=== PATIENT | female | born 2000 | race Two or more races ===

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

== ENCOUNTER 2019-01-11 18:59 | Emergency (ER) | payer OTHER, MEDICAID ==
[2019-01-11] MEDS ORDERED: ONDANSETRON 4 MG TAB.RAPDIS PO ONE (21:32)
[2019-01-11] MEDS ORDERED: ACETAMINOPHEN 325 MG TABLET PO ONE (21:32)
--- NOTE | 2019-01-11 21:34 | ER Document Report ---
ED Medical Screen (RME) - General Chief Complaint: Flu Symptoms Stated Complaint: CHEST PAIN Time Seen by Provider: 01/11/19 21:28 Primary Care Provider: DIVYA OROSCO DO [Primary Care Provider] - Follow up as needed Mode of Arrival: Ambulatory Information source: Patient Notes: Patient presents emergency department with complaints of chest pain shortness of breath headache vomiting nausea since last night. She reports it feels stabbing like someone stabbing her heart. She also reports she vomited 3 times last night and today. She reports she has a headache. Is unsure if she is but doubts it. Denies history of cardiac disease denies recent trip. Denies narcotic use. Denies cold medicine use. Reports she has a uncle on her mother side that had a heart attack at 35 years old. I have greeted and performed a rapid initial assessment of this patient. A comprehensive ED assessment and evaluation of the patient, analysis of test re sults and completion of the medical decision making process will be conducted by additional ED providers. TRAVEL OUTSIDE OF THE [place] IN LAST 30 DAYS: No - Related Data Allergies/Adverse Reactions: No Known Allergies Allergy (Verified 01/11/19 19:13) Past Medical History - Past Medical History Cardiac Medical History: Reports: Hx Hypertension - during only Neurological Medical History: Reports: Hx Seizures Renal/ Medical History: Denies: Hx Peritoneal Dialysis Past Surgical History: Reports: Hx Appendectomy - Immunizations Immunizations up to date: Yes Hx Diphtheria, Pertussis, Tetanus Vaccination: Yes History of Influenza Vaccine for 07/2017 - 12/2017 Season: No Physical Exam - Vital signs Vitals: Temp Pulse Resp BP Pulse Ox 98.9 F 98 H 14 109/79 99 01/11/19 19:27 01/11/19 19:27 01/11/19 19:27 01/11/19 19:27 01/11/19 19:27 Course - Vital Signs Vital signs: Temp Pulse Resp BP Pulse Ox 98.9 F 98 H 14 109/79 99 01/11/19 19:27 01/11/19 19:27 01/11/19 19:27 01/11/19 19:27 01/11/19 19:27 Doctor's Discharge - Discharge Referrals: DIVYA OROSCO DO [Primary Care Provider] - Follow up as needed
--- NOTE | 2019-01-11 22:36 | RADIOLOGY REPORT (SQ) ---
EXAM DESCRIPTION: XR CHEST 2 VIEWS COMPLETED DATE/TME: 01/11/2019 21:32 CLINICAL HISTORY: 18 years, Female, cp sob Findings: Heart is not enlarged. Lungs are clear. No pleural effusion. No pulmonary edema or pneumothorax. IMPRESSION: No acute disease.
[2019-01-11 23:05] LABS: ABSOLUTE LYMPHOCYTES (AUTO) 1.2 10^3/uL (0.5-4.7); ABSOLUTE MONOCYTES (AUTO) 0.8 10^3/uL (0.1-1.4); ABSOLUTE NEUT (AUTO) 4.6 10^3/uL (1.7-8.2); BASOPHILS % (AUTO) 0.2 % (0-2); EOSINOPHILS % (AUTO) 0.5 % (0-6); HEMATOCRIT 37.7 % (36.0-47.0); HEMOGLOBIN 12.8 g/dL (12.0-15.5); LYMPHOCYTES % (AUTO) 17.5 % (13-45); MEAN CORPUSCULAR HEMOGLOBIN 26.8 pg (27.0-33.4); MEAN CORPUSCULAR HGB CONC 33.9 g/dL (32.0-36.0); MEAN CORPUSCULAR VOLUME 79 fl (80-97); MONOCYTES % (AUTO) 12.5 % (3-13); PLATELET COUNT 246 10^3/uL (150-450); RED BLOOD COUNT 4.78 10^6/uL (3.72-5.28); RED CELL DISTRIBUTION WIDTH 14.8 % (11.5-14.0); SEGMENTED NEUTROPHILS % (AUTO) 69.3 % (42-78); TOTAL CELLS COUNTED % (AUTO) 100 %; WHITE BLOOD COUNT 6.7 10^3/uL (4.0-10.5)
[2019-01-11 23:19] LABS: A TYPE INFLUENZA AG NEGATIVE (NEGATIVE); B INFLUENZA AG NEGATIVE (NEGATIVE)
[2019-01-11 23:35] LABS: ALANINE AMINOTRANSFERASE 28 U/L (5-35); ALBUMIN 4.6 g/dL (3.7-5.6); ALKALINE PHOSPHATASE 81 U/L (50-135); ANION GAP 11 (5-19); ASPARTATE AMINO TRANSFERASE 20 U/L (5-30); BILIRUBIN,DIRECT 0.2 mg/dL (0.0-0.4); BILIRUBIN,TOTAL 0.6 mg/dL (0.2-1.3); BLOOD UREA NITROGEN 8 mg/dL (7-20); CALCIUM 9.2 mg/dL (8.4-10.2); CARBON DIOXIDE 25 mmol/L (22-30); CHLORIDE 102 mmol/L (98-107); GLUCOSE 86 mg/dL (75-110); POTASSIUM 3.6 mmol/L (3.6-5.0); SODIUM 137.9 mmol/L (137-145); TOTAL PROTEIN 8.1 g/dL (6.3-8.2)
[2019-01-12] MEDS ORDERED: ONDANSETRON ODT 4 MG TAB (6 TAB/ER DISP) PO PRN (02:34)
--- NOTE | 2019-01-12 02:36 | ER Document Report ---
ED General - General Chief Complaint: Flu Symptoms Stated Complaint: CHEST PAIN Time Seen by Provider: 01/11/19 21:28 Primary Care Provider: DIVYA OROSCO DO [Primary Care Provider] - Follow up as needed Mode of Arrival: Ambulatory Notes: Patient is a 18-year-old female who presents emergency department with a chief complaint of chest pain, shortness of breath, headache, vomiting, and nausea. Her symptoms started today but her nausea started last night. She has not taken any medications at home to help with her symptoms. She denies any fever. Denies any diarrhea. TRAVEL OUTSIDE OF THE [place] IN LAST 30 DAYS: No - Related Data Allergies/Adverse Reactions: No Known Allergies Allergy (Verified 01/11/19 19:13) Past Medical History - General Information source: Patient - Social History Smoking Status: Unknown if Ever Smoked Family History: Reviewed & Not Pertinent - Past Medical History Cardiac Medical History: Reports: Hx Hypertension - during only Neurological Medical History: Reports: Hx Seizures Renal/ Medical History: Denies: Hx Peritoneal Dialysis Past Surgical History: Reports: Hx Appendectomy - Immunizations Immunizations up to date: Yes Hx Diphtheria, Pertussis, Tetanus Vaccination: Yes Physical Exam - Vital signs Vitals: Temp Pulse Resp BP Pulse Ox 98.9 F 98 H 14 109/79 99 01/11/19 19:27 01/11/19 19:27 01/11/19 19:27 01/11/19 19:27 01/11/19 19:27 - Notes Notes: PHYSICAL EXAMINATION: GENERAL: Appears well, healthy, well-nourished, no acute distress. HEAD: Normocephalic, atraumatic. EYES: PERRL, conjunctiva normal, all extraocular movements intact, sclera nonicteric ENT: Moist mucous membranes. NECK: Supple, no noticeable swelling, redness, rash. Normal range of motion. LUNGS: Equal breath sounds bilaterally and clear to auscultation. No wheezes rales or rhonchi. CARDIOVASCULAR: S1-S2, regular rate, regular rhythm. Radial pulses 2+, normal. ABDOMEN: Normoactive bowel sounds. Soft, nontender, no guarding, no rebound tenderness, and no masses palpated. EXTREMITIES: Normal strength and range of motion, no pitting or edema. No cyanosis. NEUROLOGICAL: Moves all extremities upon command. Strength 5/5 in all extremities. PSYCH: Normal mood, normal affect. SKIN: Warm, dry. No rash, lesions, ulcerations noted. Normal skin turgor. Course - Re-evaluation Re-evalutation: 01/12/19 02:36 Patient's labs are unremarkable at this time. Her exam is benign. Her urinalysis is unremarkable. She states she feels better after receiving tylenol and zofran earlier. She will be sent home with a zofran dose pack and instructions on tylenol and motrin use for her pain. She is in agreement with this plan. I have discussed lab results with the patient. Return precautions were given. Verbal discharge instructions were given. They verbalized understanding. They are stable for discharge. - Vital Signs Vital signs: Temp Pulse Resp BP Pulse Ox 97.6 F 78 16 108/68 99 01/12/19 03:15 01/12/19 03:15 01/12/19 03:15 01/12/19 03:15 01/12/19 03:15 - Laboratory Result Diagrams: 01/11/19 22:42 01/11/19 22:42 Laboratory results interpreted by me: 01/11/19 22:42 MCV 79 L MCH 26.8 L RDW 14.8 H - EKG Interpretation by Me Additional EKG results interpreted by me: 01/12/19 02:46 Sinus rhythm. Rate 90. LA 172; QRS 78; QT 348; QTC 426. No ST elevations or depressions. Discharge - Discharge Clinical Impression: Chest pain Qualifiers: Chest pain type: other chest pain Qualified Code(s): R07.89 - Other chest pain Nausea and vomiting Qualifiers: Vomiting type: unspecified Vomiting Intractability: non-intractable Qualified Code(s): R11.2 - Nausea with vomiting, unspecified Condition: Stable Disposition: HOME, SELF-CARE Additional Instructions: You were seen today in the emergency department for chest pain, nausea, and vomiting. You have been given Zofran, medication for nausea. He can take 1 tablet every 4-6 hours as needed. Please take Tylenol 1000 mg every 6 hours as needed for your headache. If you develop shortness of breath, worsening symptoms, or any symptoms that are worrisome to you, please return to the emergency department. Referrals: DIVYA OROSCO, [Primary Care Provider] - Follow up as needed
[2019-01-12 03:35] VITALS: BP 108/68
--- NOTE | 2019-01-12 07:55 | EKG REPORT ---
SEVERITY:- BORDERLINE ECG - SINUS RHYTHM BORDERLINE T ABNORMALITIES, INFERIOR LEADS : Confirmed by: Joey Biggs MD 12-Jan-2019 07:53:24
== END 2019-01-12 03:35 | disposition home or self-care (01) ==
LOC: ER 18:59
DX: R07.89 Other chest pain (principal); R11.2 Nausea with vomiting, unspecified; R06.02 Shortness of breath; R51 Headache
CPT/HCPCS: 93005; 99284; 36415; 84703; 85025; 80053; 87804; 71046; 93010; S0119

== ENCOUNTER 2019-05-26 13:16 | Emergency (ER) | payer MEDICAID, OTHER ==
[2019-05-26] MEDS ORDERED: ACETAMINOPHEN 325 MG TABLET PO ONE (13:37)
--- NOTE | 2019-05-26 13:40 | ER Document Report ---
ED Medical Screen (RME) - General Chief Complaint: Vag Bleeding, +preg <12wks Stated Complaint: ABDOMINAL PAIN/VAGINAL BLEEDING Time Seen by Provider: 05/26/19 13:30 Primary Care Provider: DIVYA OROSCO DO [Primary Care Provider] - Follow up as needed Notes: Patient is a G2, P1 19-year-old female who presents to the emergency department with a chief complaint of vaginal bleeding. Her bleeding started just prior to arrival. Patient states that she has some pain in her vagina. She put a tampon in and stated that she had not filled the tampon within 5 minutes. Patient took a test about 3 weeks ago which was negative and about a week ago she took a test which was positive. Patient states that she did have some white discharge noted from her vagina about 3 days ago. Has history of seizures and is currently on Keppra. Exam: Tender mid lower abdomen. I have greeted and performed a rapid initial assessment of this patient. A comprehensive ED assessment and evaluation of the patient, analysis of test results and completion of medical decision making process will be conducted by an additional ED providers. TRAVEL OUTSIDE OF THE [place] IN LAST 30 DAYS: No - Related Data Allergies/Adverse Reactions: No Known Allergies Allergy (Verified 05/26/19 13:17) Past Medical History - Past Medical History Cardiac Medical History: Reports: Hx Hypertension - during only Neurological Medical History: Reports: Hx Seizures Renal/ Medical History: Denies: Hx Peritoneal Dialysis Past Surgical History: Reports: Hx Appendectomy - Immunizations Immunizations up to date: Yes Hx Diphtheria, Pertussis, Tetanus Vaccination: Yes History of Influenza Vaccine for 07/2017 - 12/2017 Season: No Physical Exam - Vital signs Vitals: Temp Pulse Resp BP Pulse Ox 98.3 F 79 20 124/74 97 05/26/19 13:22 05/26/19 13:22 05/26/19 13:22 05/26/19 13:22 05/26/19 13:22 Course - Vital Signs Vital signs: Temp Pulse Resp BP Pulse Ox 98.3 F 79 20 124/74 97 05/26/19 13:22 05/26/19 13:22 05/26/19 13:22 05/26/19 13:22 05/26/19 13:22 Doctor's Discharge - Discharge Referrals: DIVYA OROSCO DO [Primary Care Provider] - Follow up as needed
[2019-05-26 14:08] LABS: ABSOLUTE LYMPHOCYTES (AUTO) 1.7 10^3/uL (0.5-4.7); ABSOLUTE MONOCYTES (AUTO) 0.6 10^3/uL (0.1-1.4); ABSOLUTE NEUT (AUTO) 6.4 10^3/uL (1.7-8.2); BASOPHILS % (AUTO) 0.5 % (0-2); EOSINOPHILS % (AUTO) 0.3 % (0-6); HEMATOCRIT 38.5 % (36.0-47.0); HEMOGLOBIN 12.9 g/dL (12.0-15.5); MEAN CORPUSCULAR HEMOGLOBIN 26.7 pg (27.0-33.4); MEAN CORPUSCULAR HGB CONC 33.6 g/dL (32.0-36.0); MEAN CORPUSCULAR VOLUME 80 fl (80-97); MONOCYTES % (AUTO) 7.1 % (3-13); PLATELET COUNT 286 10^3/uL (150-450); RED BLOOD COUNT 4.83 10^6/uL (3.72-5.28); RED CELL DISTRIBUTION WIDTH 14.3 % (11.5-14.0); SEGMENTED NEUTROPHILS % (AUTO) 73.1 % (42-78); TOTAL CELLS COUNTED % (AUTO) 100 %; WHITE BLOOD COUNT 8.8 10^3/uL (4.0-10.5)
[2019-05-26 14:14] LABS: AMORPHOUS SEDIMENT,URINE TRACE /HPF; APPEARANCE,URINE TURBID; BILIRUBIN,URINE NEGATIVE (NEGATIVE); COLOR,URINE AMBER; GLUCOSE, URINE NEGATIVE (NEGATIVE); KETONES,URINE TRACE mg/dL (NEGATIVE); LEUKOCYTE ESTERASE,URINE TRACE (NEGATIVE); NITRITE,URINE NEGATIVE (NEGATIVE); PROTEIN,URINE 100 mg/dL (NEGATIVE); URINE SPECIFIC GRAVITY 1.027; UROBILINOGEN,URINE NEGATIVE mg/dL (<2.0)
[2019-05-26 14:28] LABS: ALANINE AMINOTRANSFERASE 22 U/L (9-52); ALBUMIN 4.5 g/dL (3.5-5.0); ALKALINE PHOSPHATASE 70 U/L (38-126); ANION GAP 10 (5-19); ASPARTATE AMINO TRANSFERASE 20 U/L (14-36); BILIRUBIN,DIRECT 0.2 mg/dL (0.0-0.4); BILIRUBIN,TOTAL 0.6 mg/dL (0.2-1.3); BLOOD UREA NITROGEN 8 mg/dL (7-20); CALCIUM 9.6 mg/dL (8.4-10.2); CARBON DIOXIDE 23 mmol/L (22-30); CHLORIDE 107 mmol/L (98-107); GLUCOSE 98 mg/dL (75-110); POTASSIUM 4.1 mmol/L (3.6-5.0); TOTAL PROTEIN 7.8 g/dL (6.3-8.2)
--- NOTE | 2019-05-26 15:06 | ER Document Report ---
ED General - General Chief Complaint: Vag Bleeding, +preg <12wks Stated Complaint: ABDOMINAL PAIN/VAGINAL BLEEDING Time Seen by Provider: 05/26/19 13:30 Primary Care Provider: DIVYA OROSCO DO [Primary Care Provider] - Follow up in 3-5 days Notes: Patient is a 19-year-old female, G3, P1 that presents to the emergency department for chief complaint of abdominal cramping, and vaginal bleeding. Patient states that she took a test approximately 3 weeks ago, and was positive at home, she had been having some "morning sickness", then about 1 hour prior to ED arrival today, she started having significant vaginal bleeding, like a period, and had pelvic cramping and low back pain associated with it. She was concerned she was having a miscarriage. She states that the first day of her last menstrual period was on March 02 of this year, she states that sometimes her periods can be irregular. She denies any fevers, chills, night sweats, chest pain, shortness of breath or difficulty breathing. She currently rates her pelvic pain as a 3 out of 10 describes it as cramping. She is had some whitish vaginal discharge, but denies dysuria, hematuria or urinary frequency. Past Medical History: Seizure disorder on Keppra Past Surgical History: Appendectomy Social History: Denies tobacco, alcohol or drug use. Family History: Reviewed and noncontributory for presenting illness Allergies: Reviewed, see documented allergy list. REVIEW OF SYSTEMS: Other than noted above, the 12 point review of systems was reviewed with the patient and were negative, all pertinent findings are included in the HPI. PHYSICAL EXAMINATION: Vital signs reviewed, nursing noted reviewed. GENERAL: Well-appearing, well-nourished and in no acute distress. HEAD: Atraumatic, normocephalic. EYES: Eyes appear normal, extraocular movements intact, sclera anicteric, conjunctiva are normal. ENT: nares patent, oropharynx clear without exudates. Moist mucous membranes. NECK: Normal range of motion, supple without lymphadenopathy LUNGS: Breath sounds clear to auscultation bilaterally and equal. No wheezes rales or rhonchi. HEART: Regular rate and rhythm without murmurs ABDOMEN: Soft, nontender, normoactive bowel sounds. No rebound, guarding, or rigidity. No masses appreciated. EXTREMITIES: Nontender, good range of motion, no pitting or edema. NEUROLOGICAL: No focal neurological deficits. Moves all extremities spontaneously Motor and sensory grossly intact on exam. PSYCH: Normal mood, normal affect. SKIN: Warm, Dry, normal turgor, no rashes or lesions noted on exposed skin TRAVEL OUTSIDE OF THE [place] IN LAST 30 DAYS: No - Related Data Allergies/Adverse Reactions: No Known Allergies Allergy (Verified 05/26/19 13:17) Past Medical History - General Last Menstrual Period: 03/04/19 - Social History Smoking Status: Unknown if Ever Smoked Family History: Reviewed & Not Pertinent Patient has suicidal ideation: No Patient has homicidal ideation: No - Past Medical History Cardiac Medical History: Reports: Hx Hypertension - during only Neurological Medical History: Reports: Hx Seizures Renal/ Medical History: Denies: Hx Peritoneal Dialysis Past Surgical History: Reports: Hx Appendectomy - Immunizations Immunizations up to date: Yes Hx Diphtheria, Pertussis, Tetanus Vaccination: Yes Physical Exam - Vital signs Vitals: Temp Pulse Resp BP Pulse Ox 98.3 F 79 20 124/74 97 05/26/19 13:22 05/26/19 13:22 05/26/19 13:22 05/26/19 13:22 05/26/19 13:22 Course - Re-evaluation Re-evalutation: Patient seen and examined vital signs reviewed. Laboratory data and/or imaging were ordered as appropriate for the patient's presenting symptoms and complaint, with consideration of any critical or life t hreatening conditions that may be associated with their obtained history and exam as noted above. Patient was treated with Tylenol for pain Results were reviewed when available and demonstrated negative hCG, negative ultrasound, blood work was otherwise unremarkable The patient was re-evaluated and was stable Evaluation was most consistent with vaginal bleeding, likely normal menstrual cycle. Results were discussed with the patient at this point, after careful consideration I feel that that patient can be discharged from the emergency department, the patient was educated treatments and reasons to return to the emergency department based on their presumed diagnosis as noted above, they were advised to followup with a primary care physician in 2-3 days. Patient was agreeable to plan of care. *Note is created using voice recognition software and may contain spelling, syntax or grammatical errors. Laboratory 05/26/19 05/26/19 05/26/19 13:31 13:31 13:31 WBC 8.8 RBC 4.83 Hgb 12.9 Hct 38.5 MCV 80 MCH 26.7 L MCHC 33.6 RDW 14.3 H Plt Count 286 Seg Neutrophils % 73.1 Lymphocytes % 19.0 Monocytes % 7.1 Eosinophils % 0.3 Basophils % 0.5 Absolute Neutrophils 6.4 Absolute Lymphocytes 1.7 Absolute Monocytes 0.6 Absolute Eosinophils 0.0 Absolute Basophils 0.0 Sodium 140.3 Potassium 4.1 Chloride 107 Carbon Dioxide 23 Anion Gap 10 BUN 8 Creatinine 0.62 Est GFR ( Amer) > 60 Est GFR (Non-Af Amer) > 60 Glucose 98 Calcium 9.6 Total Bilirubin 0.6 Direct Bilirubin 0.2 Neonat Total Bilirubin Not Reportable Neonat Direct Bilirubin Not Reportable Neonat Indirect Bili Not Reportable AST 20 ALT 22 Alkaline Phosphatase 70 Total Protein 7.8 Albumin 4.5 Serum HCG, Qual Beta HCG, Quant Cancelled Total Beta HCG Cancelled Urine Color DANNY Urine Appearance TURBID Urine pH 5.0 Ur Specific [place] 1.027 Urine Protein 100 H Urine Glucose (UA) NEGATIVE Urine Ketones TRACE H Urine Blood LARGE H Urine Nitrite NEGATIVE Urine Bilirubin NEGATIVE Urine Urobilinogen NEGATIVE Ur Leukocyte Esterase TRACE H Urine WBC (Auto) 6 Urine RBC (Auto) >182 Squamous Epi Cells Auto 7 Amorphous Sediment Auto TRACE Urine Mucus (Auto) MANY Urine Ascorbic Acid 40 H 05/26/19 05/26/19 13:31 13:31 WBC RBC Hgb Hct MCV MCH MCHC RDW Plt Count Seg Neutrophils % Lymphocytes % Monocytes % Eosinophils % Basophils % Absolute Neutrophils Absolute Lymphocytes Absolute Monocytes Absolute Eosinophils Absolute Basophils Sodium Potassium Chloride Carbon Dioxide Anion Gap BUN Creatinine Est GFR ( Amer) Est GFR (Non-Af Amer) Glucose Calcium Total Bilirubin Direct Bilirubin Neonat Total Bilirubin Neonat Direct Bilirubin Neonat Indirect Bili AST ALT Alkaline Phosphatase Total Protein Albumin Serum HCG, Qual NEGATIVE Beta HCG, Quant Cancelled Total Beta HCG Cancelled Urine Color Urine Appearance Urine pH Ur Specific [place] Urine Protein Urine Glucose (UA) Urine Ketones Urine Blood Urine Nitrite Urine Bilirubin Urine Urobilinogen Ur Leukocyte Esterase Urine WBC (Auto) Urine RBC (Auto) Squamous Epi Cells Auto Amorphous Sediment Auto Urine Mucus (Auto) Urine Ascorbic Acid Transvaginal US 05/26/19 13:35 IMPRESSION: NO VISUALIZED INTRA- OR EXTRAUTERINE . bHCG LEVEL NOT AVAILABLE FOR CORRELATION WITH US FINDINGS. ECTOPIC CANNOT BE EXCLUDED. FOLLOW-UP ULTRASOUND AND SERIAL BHCG LEVELS STRONGLY RECOMMENDED TO ACCURATELY ASSESS STATUS. - Vital Signs Vital signs: Temp Pulse Resp BP Pulse Ox 98.4 F 61 14 115/66 100 05/26/19 17:35 05/26/19 17:35 05/26/19 17:35 05/26/19 17:35 05/26/19 17:35 - Laboratory Result Diagrams: 05/26/19 13:31 05/26/19 13:31 Laboratory results interpreted by me: 05/26/19 05/26/19 13:31 13:31 MCH 26.7 L RDW 14.3 H Urine Protein 100 H Urine Ketones TRACE H Urine Blood LARGE H Ur Leukocyte Esterase TRACE H Urine Ascorbic Acid 40 H Discharge - Discharge Clinical Impression: Vaginal bleeding Condition: Stable Disposition: HOME, SELF-CARE Instructions: Vaginal Bleeding ([facility]) Referrals: DIVYA OROSCO DO [Primary Care Provider] - Follow up in 3-5 days
--- NOTE | 2019-05-26 16:58 | RADIOLOGY REPORT (SQ) ---
EXAM DESCRIPTION: U/S NON-OB PELVIS TV W/O DOP COMPLETED DATE/TIME: 05/26/2019 4:46 pm REASON FOR STUDY: Vaginal bleeding; positive test at home COMPARISON: None. TECHNIQUE: Transvaginal static and realtime grayscale images acquired of the pelvis. Additional danilo cted spectral and color Doppler images recorded. All images stored on PACs. CLINICAL AGE: Not known BHCG: Not available. LIMITATIONS: None. FINDINGS: UTERUS: No visualized intrauterine . RIGHT ADNEXA: Normal ovary with normal vascular flow. No adnexal free fluid. No adnexal masses. LEFT ADNEXA: Normal ovary with normal vascular flow. No adnexal free fluid. No adnexal masses. FREE FLUID: None. OTHER: No other significant finding. IMPRESSION: NO VISUALIZED INTRA- OR EXTRAUTERINE . bHCG LEVEL NOT AVAILABLE FOR CORRELATION WITH US FINDINGS. ECTOPIC CANNOT BE EXCLUDED. FOLLOW-UP ULTRASOUND AND SERIAL BHCG LEVELS STRONGLY RECOMMENDED TO ACCURATELY ASSESS STATU S. TECHNICAL DOCUMENTATION: JOB ID: [id number] [employer]- All Rights Reserved Reading location - IP/workstation name: [email or web address]
[2019-05-26 17:37] VITALS: BP 115/66
== END 2019-05-26 17:35 | disposition home or self-care (01) ==
LOC: ER 13:16
DX: N93.9 Abnormal uterine and vaginal bleeding, unspecified (principal); R10.2 Pelvic and perineal pain; M54.5 Low back pain; N89.8 Other specified noninflammatory disorders of vagina; G40.909 Epilepsy, unspecified, not intractable, without status epilepticus; Z79.899 Other long term (current) drug therapy; Z90.49 Acquired absence of other specified parts of digestive tract
CPT/HCPCS: 36415; 76830; 80053; 81001; 84703; 85025; 99284

== ENCOUNTER 2019-07-22 22:10 | Emergency (ER) | payer OTHER ==
--- NOTE | 2019-07-22 22:45 | ER Document Report ---
ED Medical Screen (RME) - General Stated Complaint: SHORTNESS OF BREATH Time Seen by Provider: 07/22/19 22:40 Primary Care Provider: DIVYA OROSCO DO [Primary Care Provider] - Follow up as needed Mode of Arrival: Ambulatory Information source: Patient Notes: 19-year-old female presents to the emergency department with complaints of right upper quad pain for the last couple weeks with really sharp pain for 1 hour ago. Reports increased pain after she eats. Denies fever vomiting reports some diarrhea today. No pain with void. Patient does smoke reports she has been coughing. I have greeted and performed a rapid initial assessment of this patient. A comprehensive ED assessment and evaluation of the patient, analysis of test results and completion of the medical decision making process will be conducted by additional ED providers. Dictation of this chart was performed using voice recognition software; therefore, there may be some unintended grammatical errors. TRAVEL OUTSIDE OF THE [place] IN LAST 30 DAYS: No - Related Data Allergies/Adverse Reactions: No Known Allergies Allergy (Verified 05/26/19 13:17) Past Medical History - Past Medical History Cardiac Medical History: Reports: Hx Hypertension - during only Neurological Medical History: Reports: Hx Seizures Renal/ Medical History: Denies: Hx Peritoneal Dialysis Past Surgical History: Reports: Hx Appendectomy - Immunizations Immunizations up to date: Yes Hx Diphtheria, Pertussis, Tetanus Vaccination: Yes History of Influenza Vaccine for 07/2017 - 12/2017 Season: No Doctor's Discharge - Discharge Referrals: DIVYA OROSCO DO [Primary Care Provider] - Follow up as needed
[2019-07-22 23:22] LABS: ABSOLUTE BASOPHILS # (AUTO) 0.1 10^3/uL (0.0-0.2); ABSOLUTE LYMPHOCYTES (AUTO) 1.4 10^3/uL (0.5-4.7); ABSOLUTE MONOCYTES (AUTO) 1.1 10^3/uL (0.1-1.4); ABSOLUTE NEUT (AUTO) 12.3 10^3/uL (1.7-8.2); BASOPHILS % (AUTO) 0.4 % (0-2); EOSINOPHILS % (AUTO) 0.3 % (0-6); HEMATOCRIT 36.9 % (36.0-47.0); HEMOGLOBIN 12.1 g/dL (12.0-15.5); LYMPHOCYTES % (AUTO) 9.1 % (13-45); MEAN CORPUSCULAR HEMOGLOBIN 26.1 pg (27.0-33.4); MEAN CORPUSCULAR HGB CONC 32.9 g/dL (32.0-36.0); MEAN CORPUSCULAR VOLUME 79 fl (80-97); MONOCYTES % (AUTO) 7.1 % (3-13); PLATELET COUNT 305 10^3/uL (150-450); RED BLOOD COUNT 4.65 10^6/uL (3.72-5.28); RED CELL DISTRIBUTION WIDTH 14.6 % (11.5-14.0); SEGMENTED NEUTROPHILS % (AUTO) 83.1 % (42-78); TOTAL CELLS COUNTED % (AUTO) 100 %; WHITE BLOOD COUNT 14.8 10^3/uL (4.0-10.5)
[2019-07-22 23:36] LABS: ALBUMIN 4.2 g/dL (3.5-5.0); ALKALINE PHOSPHATASE 83 U/L (38-126); ANION GAP 14 (5-19); ASPARTATE AMINO TRANSFERASE 21 U/L (14-36); BILIRUBIN,DIRECT 0.1 mg/dL (0.0-0.4); BILIRUBIN,TOTAL 0.3 mg/dL (0.2-1.3); BLOOD UREA NITROGEN 10 mg/dL (7-20); CALCIUM 9.6 mg/dL (8.4-10.2); CARBON DIOXIDE 22 mmol/L (22-30); CHLORIDE 103 mmol/L (98-107); GLUCOSE 112 mg/dL (75-110); POTASSIUM 4.1 mmol/L (3.6-5.0); TOTAL PROTEIN 7.8 g/dL (6.3-8.2)
[2019-07-23 00:50] LABS: APPEARANCE,URINE CLEAR; BILIRUBIN,URINE NEGATIVE (NEGATIVE); COLOR,URINE STRAW; GLUCOSE, URINE NEGATIVE (NEGATIVE); KETONES,URINE NEGATIVE (NEGATIVE); LEUKOCYTE ESTERASE,URINE NEGATIVE (NEGATIVE); NITRITE,URINE NEGATIVE (NEGATIVE); PROTEIN,URINE NEGATIVE (NEGATIVE); URINE SPECIFIC GRAVITY 1.005; UROBILINOGEN,URINE NEGATIVE mg/dL (<2.0)
--- NOTE | 2019-07-23 00:52 | RADIOLOGY REPORT (SQ) ---
EXAM DESCRIPTION: US ABDOMEN LIMITED COMPLETED DATE/TME: 07/22/2019 22:43 CLINICAL HISTORY: 19 years, Female, ruq pain COMPARISON: None. TECHNIQUE: Limited right upper quadrant ultrasound LIMITATIONS: None. FINDINGS: Echogenic appearance to the liver suggesting fatty infiltrative change. No gallstones or gallbladder wall thickening. CBD measures 2.6 mm. Visualized pancreas, abdominal aorta, right kidney unremarkable. No ascites IMPRESSION: Fatty infiltrative change to the liver. No gallstones copyright 2010 [employer]- All Rights Reserved
[2019-07-23] MEDS ORDERED: LIDOCAINE 2% VISCOUS SOLN 20 ML UDCUP PO ONE (01:22)
[2019-07-23] MEDS ORDERED: KETOROLAC TROMETHAMINE INJ/PF 30 MG/1 ML SDV IV ONE (01:22)
[2019-07-23] MEDS ORDERED: METOCLOPRAMIDE HCL ORAL SOLN 10 MG/10 ML UDCUP PO ONE (01:22)
[2019-07-23] MEDS ORDERED: MAG HYDROX/AL HYDROX/SIMETH SUSP 30 ML UDCUP PO ONE (01:22)
--- NOTE | 2019-07-23 02:36 | ER Document Report ---
ED General - General Chief Complaint: Abdominal Pain Stated Complaint: SHORTNESS OF BREATH Time Seen by Provider: 07/22/19 22:40 Primary Care Provider: DIVYA OROSCO DO [NO LOCAL MD] - Follow up as needed Mode of Arrival: Ambulatory Notes: 19-year-old female presents to the emergency department with complaints of right upper quad pain for the last couple weeks with really sharp pain for 1 hour ago. Reports increased pain after she eats. Denies fever, vomiting. does report some diarrhea today. No pain with void. No vaginal discharge. Patient does smoke reports she has been coughing. TRAVEL OUTSIDE OF THE [place] IN LAST 30 DAYS: No - Related Data Allergies/Adverse Reactions: No Known Allergies Allergy (Verified 05/26/19 13:17) Past Medical History - General Information source: Patient - Social History Smoking Status: Current Every Day Smoker Chew tobacco use (# tins/day): No Frequency of alcohol use: None Family History: Reviewed & Not Pertinent Patient has suicidal ideation: No Patient has homicidal ideation: No - Past Medical History Cardiac Medical History: Reports: Hx Hypertension - during only Neurological Medical History: Reports: Hx Seizures Renal/ Medical History: Denies: Hx Peritoneal Dialysis Past Surgical History: Reports: Hx Appendectomy - Immunizations Immunizations up to date: Yes Hx Diphtheria, Pertussis, Tetanus Vaccination: Yes Review of Systems - Review of Systems Constitutional: denies: Fever EENT: No symptoms reported Cardiovascular: No symptoms reported Respiratory: No symptoms reported Gastrointestinal: See HPI Genitourinary: No symptoms reported Female Genitourinary: No symptoms reported Musculoskeletal: No symptoms reported Skin: No symptoms reported Hematologic/Lymphatic: No symptoms reported Neurological/Psychological: No symptoms reported Physical Exam - Vital signs Vitals: Temp Pulse BP Pulse Ox 98.7 F 101 H 107/61 100 07/22/19 22:22 07/22/19 22:22 07/22/19 22:22 07/22/19 22:22 - Notes Notes: GENERAL: Alert, interacts well. No acute distress. HEAD: Normocephalic, atraumatic. EYES: Pupils equal, round, and reactive to light. Extraocular movements intact. ENT: Oral mucosa moist, tongue midline. NECK: Full range of motion. Supple. Trachea midline. LUNGS: Clear to auscultation bilaterally, no wheezes, rales, or rhonchi. No respiratory distress. HEART: Regular rate and rhythm. No murmur ABDOMEN: Soft, generalized right upper quadrant pain noted, minor epigastric pain noted. Non-distended. Bowel sounds present in all 4 quadrants. No right lower quadrant pain noted, no left lower quadrant pain noted. EXTREMITIES: Moves all 4 extremities spontaneously. No edema, normal radial and dorsalis pedis pulses bilaterally. No cyanosis. BACK: no cervical, thoracic, lumbar midline tenderness. No saddle anesthesia, normal distal neurovascular exam. No CVA tenderness noted bilaterally NEUROLOGICAL: Alert and oriented x3. Normal speech. cranial nerves II through XII grossly intact PSYCH: Normal affect, normal mood. SKIN: Warm, dry, normal turgor. No rashes or lesions noted. Course - Re-evaluation Re-evalutation: 07/23/19 02:33 Patient was treated with Toradol, GI cocktail. Upon reassessment patient is sleeping, easily arousable to verbal stimuli. States she overall feels much better. Laboratory 07/22/19 07/22/19 07/22/19 22:47 22:47 22:47 WBC 14.8 H RBC 4.65 Hgb 12.1 Hct 36.9 MCV 79 L MCH 26.1 L MCHC 32.9 RDW 14.6 H Plt Count 305 Lymph % (Auto) 9.1 L [place] % (Auto) 7.1 Eos % (Auto) 0.3 Baso % (Auto) 0.4 Absolute Neuts (auto) 12.3 H Absolute Lymphs (auto) 1.4 Absolute Monos (auto) 1.1 Absolute Eos (auto) 0.0 Absolute Basos (auto) 0.1 Seg Neutrophils % 83.1 H Sodium 139.0 Potassium 4.1 Chloride 103 Carbon Dioxide 22 Anion Gap 14 BUN 10 Creatinine 0.65 Est GFR ( Amer) > 60 Est GFR (MDRD) Non-Af > 60 Glucose 112 H Calcium 9.6 Total Bilirubin 0.3 Direct Bilirubin 0.1 Neonat Total Bilirubin Not Reportable Neonat Direct Bilirubin Not Reportable Neonat Indirect Bili Not Reportable AST 21 ALT 22 Alkaline Phosphatase 83 Total Protein 7.8 Albumin 4.2 Lipase 64.0 Serum HCG, Qual NEGATIVE Urine Color Urine Appearance Urine pH Ur Specific [place] Urine Protein Urine Glucose (UA) Urine Ketones Urine Blood Urine Nitrite Urine Bilirubin Urine Urobilinogen Ur Leukocyte Esterase Urine WBC (Auto) Urine Mucus (Auto) Urine Ascorbic Acid 07/23/19 00:22 WBC RBC Hgb Hct MCV MCH MCHC RDW Plt Count Lymph % (Auto) [place] % (Auto) Eos % (Auto) Baso % (Auto) Absolute Neuts (auto) Absolute Lymphs (auto) Absolute Monos (auto) Absolute Eos (auto) Absolute Basos (auto) Seg Neutrophils % Sodium Potassium Chloride Carbon Dioxide Anion Gap BUN Creatinine Est GFR ( Amer) Est GFR (MDRD) Non-Af Glucose Calcium Total Bilirubin Direct Bilirubin Neonat Total Bilirubin Neonat Direct Bilirubin Neonat Indirect Bili AST ALT Alkaline Phosphatase Total Protein Albumin Lipase Serum HCG, Qual Urine Color STRAW Urine Appearance CLEAR Urine pH 6.0 Ur Specific [place] 1.005 Urine Protein NEGATIVE Urine Glucose (UA) NEGATIVE Urine Ketones NEGATIVE Urine Blood NEGATIVE Urine Nitrite NEGATIVE Urine Bilirubin NEGATIVE Urine Urobilinogen NEGATIVE Ur Leukocyte Esterase NEGATIVE Urine WBC (Auto) 0 Urine Mucus (Auto) RARE Urine Ascorbic Acid NEGATIVE Abdomen Ultrasound 07/22/19 22:43 IMPRESSION: Fatty infiltrative change to the liver. No gallstones copyright 2010 [employer]- All Rights Reserved Discussed close follow-up with primary care provider and inevitably follow-up with gastroenteritis should this be gastritis related. At this time will discharge with return precautions and follow-up recommendations. Verbal discharge instructions given a the bedside and opportunity for questions given. Medication warnings reviewed. Patient is in agreement with this plan and has verbalized understanding of return precautions and the need for primary care follow-up in the next 24-72 hours. This medical record was dictated with voice recognizing software. There may be grammatical, syntax errors that are unintended. - Vital Signs Vital signs: Temp Pulse Resp BP Pulse Ox 98.7 F 68 14 123/65 99 07/22/19 22:22 07/23/19 02:49 07/23/19 02:49 07/23/19 02:49 07/23/19 02:49 - Laboratory Result Diagrams: 07/22/19 22:47 07/22/19 22:47 Laboratory results interpreted by me: 07/22/19 07/22/19 22:47 22:47 WBC 14.8 H MCV 79 L MCH 26.1 L RDW 14.6 H Lymph % (Auto) 9.1 L Absolute Neuts (auto) 12.3 H Seg Neutrophils % 83.1 H Glucose 112 H Discharge - Discharge Clinical Impression: Abdominal pain Qualifiers: Abdominal location: right upper quadrant Qualified Code(s): R10.11 - Right upper quadrant pain Gastritis Qualifiers: Gastritis type: unspecified gastritis Chronicity: acute Gastritis bleeding: without bleeding Qualified Code(s): K29.00 - Acute gastritis without bleeding Condition: Stable Disposition: HOME, SELF-CARE Instructions: Abdominal Pain ([facility]), Gastritis ([facility]), Toradol Injection ([facility]) Additional Instructions: As we discussed you have been seen and treated in the emergency department for your right upper abdominal pain and gastritis. Please make sure you are taking prescriptions as prescribed. Please also make sure he follow-up with a primary care provider and gastroenterology. Please return to the emergency room for any further concerns. Prescriptions: Famotidine [Pepcid 40 mg Tablet] 40 mg PO BID #60 tablet Forms: Return to Work Referrals: DIVYA OROSCO, [NO LOCAL MD] - Follow up as needed
[2019-07-23 02:51] VITALS: BP 123/65
== END 2019-07-23 02:52 | disposition home or self-care (01) ==
LOC: ER 22:10
DX: K29.00 Acute gastritis without bleeding (principal); R10.11 Right upper quadrant pain; R10.13 Epigastric pain; R19.7 Diarrhea, unspecified; R05 Cough; F17.200 Nicotine dependence, unspecified, uncomplicated; Z90.49 Acquired absence of other specified parts of digestive tract
CPT/HCPCS: 99284; 96374; 96375; 36415; 83690; 84703; 85025; 80053; 81001; 76705; J3490; J1885

== ENCOUNTER 2019-07-24 13:19 | Emergency (ER) | payer OTHER ==
[2019-07-24 13:36] VITALS: BP 105/70
--- NOTE | 2019-07-24 13:55 | ER Document Report ---
ED Medical Screen (RME) - General Stated Complaint: STOMACH PAIN, VOMITING Time Seen by Provider: 07/24/19 13:51 Primary Care Provider: KLADUIA HINTON PA-C [Primary Care Provider] - Follow up as needed Mode of Arrival: Ambulatory Information source: Patient Notes: 19-year-old female presents emergency department with right upper quad abdominal pain for a while reports vomiting. Reports she was evaluated recently told she had gallstones. Patient reports she is try to follow-up with the surgeon but has not gotten appointment yet. Denies fever diarrhea. Declined antinausea medicine wants something for the pain. I have greeted and performed a rapid initial assessment of this patient. A comprehensive ED assessment and evaluation of the patient, analysis of test results and completion of the medical decision making process will be conducted by additional ED providers. Dictation of this chart was performed using voice recognition software; therefore, there may be some unintended grammatical errors. TRAVEL OUTSIDE OF THE [place] IN LAST 30 DAYS: No - Related Data Allergies/Adverse Reactions: No Known Allergies Allergy (Verified 07/24/19 13:49) Past Medical History - Past Medical History Cardiac Medical History: Reports: Hx Hypertension - during only Neurological Medical History: Reports: Hx Seizures Renal/ Medical History: Denies: Hx Peritoneal Dialysis Past Surgical History: Reports: Hx Appendectomy - Immunizations Immunizations up to date: Yes Hx Diphtheria, Pertussis, Tetanus Vaccination: Yes History of Influenza Vaccine for 07/2017 - 12/2017 Season: No Physical Exam - Vital signs Vitals: Temp Pulse Resp BP Pulse Ox 98.2 F 72 16 105/70 98 07/24/19 13:35 07/24/19 13:35 07/24/19 13:35 07/24/19 13:35 07/24/19 13:35 Course - Vital Signs Vital signs: Temp Pulse Resp BP Pulse Ox 98.2 F 72 16 105/70 98 07/24/19 13:35 07/24/19 13:35 07/24/19 13:35 07/24/19 13:35 07/24/19 13:35 Doctor's Discharge - Discharge Referrals: KLAUDIA HINTON PA-C [Primary Care Provider] - Follow up as needed
[2019-07-24 14:12] LABS: ABSOLUTE EOSINOPHILS # (AUTO) 0.1 10^3/uL (0.0-0.6); ABSOLUTE LYMPHOCYTES (AUTO) 1.5 10^3/uL (0.5-4.7); ABSOLUTE MONOCYTES (AUTO) 0.7 10^3/uL (0.1-1.4); ABSOLUTE NEUT (AUTO) 6.6 10^3/uL (1.7-8.2); BASOPHILS % (AUTO) 0.4 % (0-2); EOSINOPHILS % (AUTO) 1.3 % (0-6); HEMATOCRIT 35.3 % (36.0-47.0); HEMOGLOBIN 11.8 g/dL (12.0-15.5); LYMPHOCYTES % (AUTO) 17.2 % (13-45); MEAN CORPUSCULAR HEMOGLOBIN 26.4 pg (27.0-33.4); MEAN CORPUSCULAR HGB CONC 33.3 g/dL (32.0-36.0); MEAN CORPUSCULAR VOLUME 79 fl (80-97); MONOCYTES % (AUTO) 7.9 % (3-13); PLATELET COUNT 362 10^3/uL (150-450); RED BLOOD COUNT 4.46 10^6/uL (3.72-5.28); RED CELL DISTRIBUTION WIDTH 14.6 % (11.5-14.0); SEGMENTED NEUTROPHILS % (AUTO) 73.2 % (42-78); TOTAL CELLS COUNTED % (AUTO) 100 %
[2019-07-24 14:21] LABS: APPEARANCE,URINE SLIGHTLY-CLOUDY; BILIRUBIN,URINE NEGATIVE (NEGATIVE); COLOR,URINE YELLOW; GLUCOSE, URINE NEGATIVE (NEGATIVE); KETONES,URINE NEGATIVE (NEGATIVE); LEUKOCYTE ESTERASE,URINE SMALL (NEGATIVE); NITRITE,URINE NEGATIVE (NEGATIVE); PROTEIN,URINE NEGATIVE (NEGATIVE); URINE SPECIFIC GRAVITY 1.027; UROBILINOGEN,URINE NEGATIVE mg/dL (<2.0)
[2019-07-24 14:34] LABS: ALBUMIN 3.9 g/dL (3.5-5.0); ALKALINE PHOSPHATASE 83 U/L (38-126); ANION GAP 8 (5-19); ASPARTATE AMINO TRANSFERASE 22 U/L (14-36); BILIRUBIN,DIRECT 0.2 mg/dL (0.0-0.4); BILIRUBIN,TOTAL 0.3 mg/dL (0.2-1.3); BLOOD UREA NITROGEN 9 mg/dL (7-20); CALCIUM 9.5 mg/dL (8.4-10.2); CARBON DIOXIDE 29 mmol/L (22-30); CHLORIDE 104 mmol/L (98-107); GLUCOSE 96 mg/dL (75-110); POTASSIUM 4.2 mmol/L (3.6-5.0); TOTAL PROTEIN 7.4 g/dL (6.3-8.2)
--- NOTE | 2019-07-24 17:31 | ER Document Report ---
ED Medical Screen (RME) - General Chief Complaint: Upper Abdominal Pain Stated Complaint: STOMACH PAIN, VOMITING Time Seen by Provider: 07/24/19 13:51 Primary Care Provider: KLAUDIA HINTON PA-C [Primary Care Provider] - Follow up as needed Mode of Arrival: Ambulatory Information source: Patient Notes: Patient presents emergency department with right upper quad abdominal pain reports history of gallstones. According to patient she was evaluated by surgeon who gave her antibiotics for ulcer. She reports she still having the right upper quad abdominal pain. 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 She returned to finish her evaluation. Please see prior chart for labs. I have greeted and performed a rapid initial assessment of this patient. A comprehensive ED assessment and evaluation of the patient, analysis of test results and completion of the medical decision making process will be conducted by additional ED providers. Dictation of this chart was performed using voice recognition software; therefore, there may be some unintended grammatical errors. TRAVEL OUTSIDE OF THE [place] IN LAST 30 DAYS: No - Related Data Allergies/Adverse Reactions: No Known Allergies Allergy (Verified 07/24/19 13:49) Past Medical History - Social History Chew tobacco use (# tins/day): No Frequency of alcohol use: None Drug Abuse: None - Past Medical History Cardiac Medical History: Reports: Hx Hypertension - during only Neurological Medical History: Reports: Hx Seizures Renal/ Medical History: Denies: Hx Peritoneal Dialysis Past Surgical History: Reports: Hx Appendectomy - Immunizations Immunizations up to date: Yes Hx Diphtheria, Pertussis, Tetanus Vaccination: Yes History of Influenza Vaccine for 07/2017 - 12/2017 Season: No Physical Exam - Vital signs Vitals: Temp Pulse Resp BP Pulse Ox 98.2 F 72 16 105/70 98 07/24/19 13:35 07/24/19 13:35 07/24/19 13:35 07/24/19 13:35 07/24/19 13:35 Course - Vital Signs Vital signs: Temp Pulse Resp BP Pulse Ox 98.2 F 72 16 105/70 98 07/24/19 13:35 07/24/19 13:35 07/24/19 13:35 07/24/19 13:35 07/24/19 13:35 - Laboratory Result Diagrams: 07/24/19 14:04 07/24/19 14:04 Laboratory results interpreted by me: 07/24/19 07/24/19 14:04 14:04 Hgb 11.8 L Hct 35.3 L MCV 79 L MCH 26.4 L RDW 14.6 H Ur Leukocyte Esterase SMALL H Urine Ascorbic Acid 40 H Doctor's Discharge - Discharge Referrals: KLAUDIA HINTON PA-C [Primary Care Provider] - Follow up as needed
== END 2019-07-24 16:20 | disposition left against medical advice (07) ==
LOC: ER 13:19
DX: R10.11 Right upper quadrant pain (principal); Z90.49 Acquired absence of other specified parts of digestive tract; Z53.20 Procedure and treatment not carried out because of patient's decision for unspecified reasons
CPT/HCPCS: 36415; 80053; 81001; 81025; 83690; 85025; 99281; 99284

== ENCOUNTER 2019-12-24 14:14 | Emergency (ER) | payer OTHER ==
[2019-12-24 14:49] VITALS: BP 111/52
[2019-12-24] MEDS ORDERED: CETIRIZINE 10 MG TABLET PO ONE (14:51)
--- NOTE | 2019-12-24 14:58 | ER Document Report ---
HPI - HPI Time Seen by Provider: 12/24/19 14:48 Pain Level: 3 Context: Patient is a 19-year-old female who presents to the emergency department with a chief complaint of rhinorrhea, fever, and cough.Patient states that her symptoms started 3 days ago. Patient has not received her flu vaccine. Patient states that she is nauseous, but has not vomited. Patient has a past medical history of seizures and is currently on Keppra. - CONSTITUTIONAL Constitutional: DENIES: Fever, Chills - EENT EENT: REPORTS: Sore Throat - NEURO Neurology: REPORTS: Headache - RESPIRATORY Respiratory: REPORTS: Coughing - REPRODUCTIVE Reproductive: DENIES: : - DERM Skin Color: Normal Skin Problems: None Past Medical History - Social History Smoking Status: Unknown if Ever Smoked Family History: Reviewed & Not Pertinent Patient has suicidal ideation: No Patient has homicidal ideation: No - Past Medical History Cardiac Medical History: Reports: Hx Hypertension - during only Neurological Medical History: Reports: Hx Seizures Renal/ Medical History: Denies: Hx Peritoneal Dialysis Past Surgical History: Reports: Hx Appendectomy - Immunizations Immunizations up to date: Yes Hx Diphtheria, Pertussis, Tetanus Vaccination: Yes Vertical Provider Document - CONSTITUTIONAL Agree With Documented VS: Yes Exam Limitations: No Limitations General Appearance: No Apparent Distress - INFECTION CONTROL TRAVEL OUTSIDE OF THE [place] IN LAST 30 DAYS: No - HEENT HEENT: Atraumatic, Normocephalic, PERRLA, Pharyngeal Tenderness, Pharyngeal Erythema. negative: Conjuctival Injection, Normal ENT Exam - Cerumen noted, but able to visualize tympanic membrane, Pharyngeal Exudate, Tympanic Membrane Red, Tympanic Membrane Bulging Notes: Edema and erythema noted to nasal mucosa - NECK Neck: Normal Inspection - RESPIRATORY Respiratory: Breath Sounds Normal, No Respiratory Distress - CARDIOVASCULAR Cardiovascular: Regular Rate, Regular Rhythm Pulses: Normal: Radial - GI/ABDOMEN Gastrointestinal: Abdomen Soft, Abdomen Non-Tender - MUSCULOSKELETAL/EXTREMETIES Musculoskeletal/Extremeties: FROM - NEURO Level of Consciousness: Awake, Alert, Appropriate Motor/Sensory: No Motor Deficit, No Sensory Deficit - DERM Integumentary: Warm, Dry, No Rash Course - Re-evaluation Re-evalutation: 12/24/19 Presentation is most consistent with a viral upper respiratory infection. Patient is overall well appearance, vitals within normal limits, well-hydrated. Patient denies any headache, neck pain, and has no evidence of meningismus on examination. Lungs are clear bilaterally. No evidence of respiratory distress. Based on clinical exam and history, I do not suspect an acute pneumonia, meningitis, strep pharyngitis, or an acute encephalitis. Influenza test is negative. Patient will be started on cetirizine and Flonase. Will give Debrox for excessive cerumen. Will discharge patient with return precautions and followup recommendations. They are in agreement this plan have verbalized understanding return precautions. - Vital Signs Vital signs: Temp Pulse Resp BP Pulse Ox 98.7 F 89 16 111/52 L 100 12/24/19 14:48 12/24/19 14:48 12/24/19 14:48 12/24/19 14:48 12/24/19 14:48 Discharge - Discharge Clinical Impression: Upper respiratory infection, viral, Rhinorrhea, History of excessive cerumen Condition: Stable Disposition: HOME, SELF-CARE Additional Instructions: You were seen today in the emergency department for a cough, fever, and runny nose. Your symptoms are most consistent with an upper respiratory viral infection. Please take acetaminophen 1000 mg and ibuprofen 600 mg every 6 hours as needed for any body aches or fever. You have been given cetirizine, medica tion to help with your runny nose. Take 1 tablet every day while you have symptoms. You have also been given Flonase, medication to help with the inflammation in your nose. Place 1 spray to each nostril twice a day. If you develop a fever greater than 100.4 F while on ibuprofen and acetaminophen, develop shortness of breath, difficulty breathing, or any symptoms that are worrisome to you, please return to the emergency department. You also have a small amount of earwax in your ears, but your ear does not appear infected. Your ears do not look infected, but clearing out the earwax may help. Please not place any Q-tips in your ears. Use the eardrops to help you. Prescriptions: Cetirizine HCl [All Day Allergy] 10 mg PO DAILY #30 tablet Carbamide Peroxide [Debrox 6.5 % Otic Drops 15 ml] 10 drop OT DAILY PRN #1 bottle PRN Reason: Fluticasone Propionate [Flonase Nasal [place] 50 Mcg/[place] 16 gm] 2 sprays NASL DAILY #1 inhaler Ondansetron [Zofran Odt 4 mg Tablet] 1 - 2 tab PO Q4H PRN #15 tab.rapdis PRN Reason: For Nausea/Vomiting Forms: Return to Work Referrals: AVINASH CONTRERAS MD [Primary Care Provider] - Follow up in 3-5 days
[2019-12-24 15:59] LABS: A TYPE INFLUENZA AG NEGATIVE (NEGATIVE); B INFLUENZA AG NEGATIVE (NEGATIVE)
[2019-12-24] MEDS ORDERED: ONDANSETRON 4 MG TAB.RAPDIS PO ONE (16:55)
[2019-12-24] MEDS ORDERED: ACETAMINOPHEN 325 MG TABLET PO ONE (16:55)
== END 2019-12-24 17:03 | disposition home or self-care (01) ==
LOC: ER 14:14
DX: J06.9 Acute upper respiratory infection, unspecified (principal); B97.89 Other viral agents as the cause of diseases classified elsewhere; J34.89 Other specified disorders of nose and nasal sinuses; R50.9 Fever, unspecified; R05 Cough; R11.0 Nausea; G40.909 Epilepsy, unspecified, not intractable, without status epilepticus; R51 Headache; Z79.899 Other long term (current) drug therapy
CPT/HCPCS: 99283; 87070; 87880; 87804; S0119

== ENCOUNTER 2020-04-24 01:31 | Emergency (ER) | payer OTHER ==
[2020-04-24 01:37] VITALS: BP 125/81
[2020-04-24] MEDS ORDERED: ACETAMINOPHEN 325 MG TABLET PO ONE (02:14)
== END 2020-04-24 04:35 | disposition left against medical advice (07) ==
LOC: ER 01:31
DX: Z53.21 Procedure and treatment not carried out due to patient leaving prior to being seen by health care provider (principal)

== ENCOUNTER 2020-04-24 22:52 | Emergency (ER) | payer SELFPAY ==
[2020-04-24 23:16] VITALS: BP 102/84
--- NOTE | 2020-04-24 23:42 | ER Document Report ---
ED Medical Screen (RME) - General Chief Complaint: Abdominal Pain Stated Complaint: ABDOMINAL PAIN/PELVIC PAIN Primary Care Provider: KLAUDIA HINTON PA-C [Primary Care Provider] - Follow up as needed Notes: Patient is a 20-year-old female with no significant past medical history who presents to the emergency department with a chief complaint of pelvic pain and vaginal discharge. She states that she typically has pelvic pains on and off regularly. She states yesterday this seemed to worsen and was in conjunction with some white vaginal discharge and scant dark blood. She could not wait last night here in the department and had to leave. She has never seen an [employer] or had a Pap smear. She states she is unsure if she is . Reports her periods are irregular. Denies ever having any STD but unsure of whether or not that could be the case at this point. Admits to some associated lower abdominal discomfort. Denies any fever, nausea, vomiting or diarrhea. I have treated and performed a rapid initial assessment of this patient. A comprehensive ED assessment and evaluation of the patient, analysis of test results and completion of medical decision making process will be conducted by additional ED providers. PHYSICAL EXAMINATION: GENERAL: Well-appearing, well-nourished and in no acute distress. A&Ox4. Answers questions appropriately. TRAVEL OUTSIDE OF THE [place] IN LAST 30 DAYS: No - Related Data Allergies/Adverse Reactions: No Known Allergies Allergy (Verified 07/24/19 13:49) Past Medical History - Social History Chew tobacco use (# tins/day): No Frequency of alcohol use: None Drug Abuse: None - Past Medical History Cardiac Medical History: Reports: Hx Hypertension - during only Neurological Medical History: Reports: Hx Seizures Renal/ Medical History: Denies: Hx Peritoneal Dialysis Past Surgical History: Reports: Hx Appendectomy - Immunizations Immunizations up to date: Yes Hx Diphtheria, Pertussis, Tetanus Vaccination: Yes Physical Exam - Vital signs Vitals: Temp Pulse Resp BP Pulse Ox 97.8 F 79 20 102/84 97 04/24/20 23:13 04/24/20 23:13 04/24/20 23:13 04/24/20 23:13 04/24/20 23:13 Course - Vital Signs Vital signs: Temp Pulse Resp BP Pulse Ox 97.8 F 79 20 102/84 97 04/24/20 23:34 04/24/20 23:13 04/24/20 23:13 04/24/20 23:13 04/24/20 23:13 Doctor's Discharge - Discharge Referrals: KLAUDIA HINTON PA-C [Primary Care Provider] - Follow up as needed
--- NOTE | 2020-04-25 00:23 | RADIOLOGY REPORT (SQ) ---
CLINICAL HISTORY: pelvic pain COMPARISON: None. TECHNIQUE: US PELVIS TRANSVAGINAL 04/24/2020 11:40 PM CDT FINDINGS: Uterus measures 7.8 cm. Endometrial stripe measures 2 mm. Cervix measures 2.9 cm. Both ovaries are unremarkable with patent flow. IMPRESSION: Unremarkable study.
[2020-04-25 01:00] LABS: ABSOLUTE EOSINOPHILS # (AUTO) 0.1 10^3/uL (0.0-0.6); ABSOLUTE LYMPHOCYTES (AUTO) 2.2 10^3/uL (0.5-4.7); ABSOLUTE MONOCYTES (AUTO) 0.8 10^3/uL (0.1-1.4); ABSOLUTE NEUT (AUTO) 4.4 10^3/uL (1.7-8.2); BASOPHILS % (AUTO) 0.4 % (0-2); EOSINOPHILS % (AUTO) 1.1 % (0-6); HEMATOCRIT 33.6 % (36.0-47.0); HEMOGLOBIN 11.3 g/dL (12.0-15.5); MEAN CORPUSCULAR HEMOGLOBIN 26.6 pg (27.0-33.4); MEAN CORPUSCULAR HGB CONC 33.7 g/dL (32.0-36.0); MEAN CORPUSCULAR VOLUME 79 fl (80-97); MONOCYTES % (AUTO) 11.2 % (3-13); PLATELET COUNT 288 10^3/uL (150-450); RED BLOOD COUNT 4.27 10^6/uL (3.72-5.28); RED CELL DISTRIBUTION WIDTH 14.6 % (11.5-14.0); SEGMENTED NEUTROPHILS % (AUTO) 58.3 % (42-78); TOTAL CELLS COUNTED % (AUTO) 100 %; WHITE BLOOD COUNT 7.5 10^3/uL (4.0-10.5)
[2020-04-25] MEDS ORDERED: ACETAMINOPHEN 325 MG TABLET PO ONE (01:15)
[2020-04-25 01:25] LABS: ALBUMIN 3.9 g/dL (3.5-5.0); ALKALINE PHOSPHATASE 68 U/L (38-126); ANION GAP 8 (5-19); ASPARTATE AMINO TRANSFERASE 21 U/L (14-36); BILIRUBIN,TOTAL 0.3 mg/dL (0.2-1.3); BLOOD UREA NITROGEN 10 mg/dL (7-20); CALCIUM 9.3 mg/dL (8.4-10.2); CARBON DIOXIDE 25 mmol/L (22-30); CHLORIDE 106 mmol/L (98-107); GLUCOSE 101 mg/dL (75-110); POTASSIUM 4.1 mmol/L (3.6-5.0)
[2020-04-25 01:26] LABS: TOTAL PROTEIN 7.5 g/dL (6.3-8.2)
[2020-04-25 01:27] LABS: APPEARANCE,URINE SLIGHTLY-CLOUDY; BILIRUBIN,URINE NEGATIVE (NEGATIVE); COLOR,URINE YELLOW; GLUCOSE, URINE NEGATIVE (NEGATIVE); KETONES,URINE NEGATIVE (NEGATIVE); PROTEIN,URINE NEGATIVE (NEGATIVE); URINE SPECIFIC GRAVITY 1.028; UROBILINOGEN,URINE NEGATIVE mg/dL (<2.0)
--- NOTE | 2020-04-25 02:48 | ER Document Report ---
ED GI/ - General Chief Complaint: Abdominal Pain Stated Complaint: ABDOMINAL PAIN/PELVIC PAIN Time Seen by Provider: 04/25/20 01:24 Primary Care Provider: [facility] [Provider Group] - Follow up as needed KLAUDIA HINTON PA-C [Primary Care Provider] - Follow up as needed Mode of Arrival: Ambulatory Information source: Patient Notes: 20-year-old female presented to ED for complaint of vaginal discharge with pelvic pain. She states she has pelvic pain off and on but this time she is having a lot of vaginal discharge and it is worse than normal. She states she did have a small amount of dark red blood. She states she came in the night before but left before she was examined. TRAVEL OUTSIDE OF THE [place] IN LAST 30 DAYS: No - HPI Patient complains to provider of: Pelvic pain, Vaginal discharge Onset: Other - 2 days ago Timing/Duration: Gradual Quality of pain: Achy, Cramping Severity at maximum: Moderate Severity in ED: Moderate Pain Level: 4 Vaginal bleeding (Compared to normal period): Spotting Sexual history: Unprotected intercourse Associated symptoms: Vaginal discharge Exacerbated by: Other - Sexual intercourse Relieved by: Denies Similar symptoms previously: Yes Recently seen / treated by doctor: No - Related Data Allergies/Adverse Reactions: No Known Allergies Allergy (Verified 07/24/19 13:49) Past Medical History - Social History Smoking Status: Never Smoker Chew tobacco use (# tins/day): No Frequency of alcohol use: None Drug Abuse: None Lives with: Friend Family History: Reviewed & Not Pertinent - Past Medical History Cardiac Medical History: Reports: Hx Hypertension - during only Pulmonary Medical History: Reports: None EENT Medical History: Reports: None Neurological Medical History: Reports: Hx Seizures Endocrine Medical History: Reports: None Renal/ Medical History: Reports: None Malignancy Medical History: Reports: None GI Medical History: Reports: None Musculoskeletal Medical History: Reports None Skin Medical History: Reports None Psychiatric Medical History: Reports: None Traumatic Medical History: Reports: None Infectious Medical History: Reports: None Past Surgical History: Reports: Hx Appendectomy - Immunizations Immunizations up to date: Yes Hx Diphtheria, Pertussis, Tetanus Vaccination: Yes Review of Systems - Review of Systems Constitutional: No symptoms reported EENT: No symptoms reported Cardiovascular: No symptoms reported Respiratory: No symptoms reported Gastrointestinal: No symptoms reported Genitourinary: No symptoms reported Female Genitourinary: Vaginal discharge, Vaginal odor, Painful intercourse, Other - Pelvic pain Musculoskeletal: No symptoms reported Skin: No symptoms reported Hematologic/Lymphatic: No symptoms reported Neurological/Psychological: No symptoms reported -: Yes All other systems reviewed and negative Physical Exam - Vital signs Vitals: Temp Pulse Resp BP Pulse Ox 97.8 F 79 20 102/84 97 04/24/20 23:13 04/24/20 23:13 04/24/20 23:13 04/24/20 23:13 04/24/20 23:13 Interpretation: Normal - General General appearance: Appears well, Alert - HEENT Head: Normocephalic, Atraumatic Eyes: Normal Pupils: PERRL - Respiratory Respiratory status: No respiratory distress Chest status: Nontender Breath sounds: Normal Chest palpation: Normal - Cardiovascular Rhythm: Regular Heart sounds: Normal auscultation Murmur: No - Abdominal Inspection: Normal Distension: No distension Bowel sounds: Normal Tenderness: Nontender Organomegaly: No organomegaly - Genitourinary External exam: Normal Speculum exam: Cervix closed, Vaginal discharge Vaginal bleeding: None Bimanuel exam: Cervical motion tender - Back Back: Normal, Nontender - Extremities General upper extremity: Normal inspection, Nontender, Normal color, Normal ROM, Normal temperature General lower extremity: Normal inspection, Nontender, Normal color, Normal ROM, Normal temperature, Normal weight bearing. No: Sarah's sign - Neurological Neuro grossly intact: Yes Cognition: Normal Orientation: AAOx4 [place] Coma Scale Eye Opening: Spontaneous Jenni Coma Scale Verbal: Oriented Jenni Coma Scale Motor: Obeys Commands Jenni Coma Scale Total: 15 Speech: Normal Motor strength normal: LUE, RUE, LLE, RLE Sensory: Normal - Psychological Associated symptoms: Normal affect, Normal mood - Skin Skin Temperature: Warm Skin Moisture: Dry Skin Color: Normal Course - Re-evaluation Re-evalutation: 04/25/20 05:25 Discussed labs and ultrasound with patient regular border labs and ultrasound given to patient. Patient was positive for chlamydia. She was treated with a azithromycin. Patient is alert oriented respirations regular and unlabored. She was given instructions to please do not have any sexual intercourse until this been 10 days after she and her partner have been treated. She was instructed to follow-up with [facility]. - Vital Signs Vital signs: Temp Pulse Resp BP Pulse Ox 97.8 F 79 20 102/84 97 04/24/20 23:34 04/24/20 23:13 04/24/20 23:13 04/24/20 23:13 04/24/20 23:13 - Laboratory Result Diagrams: 04/25/20 00:50 04/25/20 00:50 Laboratory results interpreted by me: 04/25/20 04/25/20 04/25/20 00:50 00:50 00:50 Hgb 11.3 L Hct 33.6 L MCV 79 L MCH 26.6 L RDW 14.6 H Leukocyte Esterase Rfl TRACE H Urine Ascorbic Acid 40 H Acetaminophen Chlamydia DNA (PCR) DETECTED H 04/25/20 00:50 Hgb Hct MCV MCH RDW Leukocyte Esterase Rfl Urine Ascorbic Acid Acetaminophen < 10 L Chlamydia DNA (PCR) - Diagnostic Test Radiology reviewed: Image reviewed, Reports reviewed Discharge - Discharge Clinical Impression: Chlamydia Condition: Stable Disposition: HOME, SELF-CARE Additional Instructions: PELVIC PAIN: There are many causes of pain in the pelvic area. The cause could be the tubes, ovaries, uterus, intestines, appendix, pelvic muscles and connective tissue, or the urinary tract. The cause of your pelvic pain is not clear. However, it seems safe to treat you outside the hospital. If the pain sounds like a temporary problem, we sometimes wait to see if it goes away. Other patients may need additional tests, such as pelvic ultrasound or cultures. Conditions may change. Call us or come back for reexamination if any problems occur, such as: (1) Pain that becomes more severe, steady, or becomes concentrated in one specific area. Also, pain that is more severe with movement or coughing. (2) Vomiting that persists or becomes more frequent. (3) Blood in the vomitus, urine, or bowel movements. Blood in the stool may have a tarry or black appearance. (4) Shaking chills or fever greater than 100 degrees. (5) The abdomen becomes more distended or swollen. (6) Bowel movements cease. (7) Heavy vaginal bleeding. Chlamydia You have a chlamydia infection. Chlamydia is a germ that grows inside the cells of the mucous membranes. It often infects the eyes, urethra, and fallopian tubes. It can cause chronic pain and scar tissue if untreated. Antibiotics are used to treat chlamydia. It's important to take all the medicine even if there are no symptoms. Use condoms to prevent spread of the infection. Because this infection can spread by sexual contact, it's important that your sexual partner be checked before resuming sexual relations. A positive test for chlamydia has to be reported to the health department. Call the doctor or return at once if you develop increasing fever, rash, severe pelvic pain, vaginal bleeding (other than your period), or problems with your bladder or bowels. AZITHROMYCIN: Azithromycin (Zithromax) is a broad spectrum antibiotic in the same class as erythromycin. It can treat a variety of bacterial infections, but is most frequently used for respiratory infections. Azithromycin is extremely long-lasting. It accumulates in body tissues and continues to kill bacteria for many days. In order to improve absorption, Azithromycin should be taken at least one hour before or two hours after a meal. It does not have the same strong tendency to upset the stomach as erythromycin and is usually very well tolerated. Patients who have had a rash or other true allergic reactions to erythromycin should not take this medication. Call if you develop gastrointestinal distress, severe diarrhea, rash, hives, itching, or shortness of breath. FOLLOW-UP CARE: If you have been referred to a physician for follow-up care, call the physicians office for an appointment as you were instructed or within the next two days. If you experience worsening or a significant change in your symptoms, notify the physician immediately or return to the Emergency Department at any time for re-evaluation. Forms: Return to Work Referrals: KLAUDIA HINTON PA-C [Primary Care Provider] - Follow up as needed [facility] [Provider Group] - Follow up as needed
[2020-04-25 03:01] LABS: CHLAM PCR DETECTED (NOT DETECT)
[2020-04-25 03:20] LABS: RBCS (WET MOUNT) RARE RBCS SEEN; T.VAGINALIS (WET MOUNT) NO TRICHOMONAS SEEN; WBCS (WET MOUNT) 1+ WBCS SEEN; YEAST (WET MOUNT) NO YEAST SEEN
[2020-04-25] MEDS ORDERED: AZITHROMYCIN 250 MG TABLET PO ONE (03:57)
== END 2020-04-25 04:34 | disposition home or self-care (01) ==
LOC: ER 22:52
DX: A74.9 Chlamydial infection, unspecified (principal); R10.2 Pelvic and perineal pain; N94.10 Unspecified dyspareunia; N89.8 Other specified noninflammatory disorders of vagina
CPT/HCPCS: 36415; 76830; 80053; 80307; 81001; 83690; 84703; 85025; 87210; 87491; 87591; 93976; 99284

== ENCOUNTER 2020-04-30 17:37 | Emergency (ER) | payer SELFPAY ==
--- NOTE | 2020-04-30 22:11 | ER Document Report ---
ED General - General Chief Complaint: Nonproductive Cough Stated Complaint: HEADACHE,COUGH,CONGESTION Time Seen by Provider: 04/30/20 21:14 Primary Care Provider: KLAUDIA HINTON PA-C [Primary Care Provider] - Follow up as needed Notes: 20-year-old female presents emergency department complaining of nasal congestion starting yesterday, nonproductive cough and headache starting today and the cough is associated with small amount of chest tightness. Denies fevers, chills, nausea, vomiting, diarrhea or shortness of breath. Patient states that her nasal congestion is so bad that makes it difficult to sleep. Patient does not think she is contracted coronavirus however she would like to be tested. TRAVEL OUTSIDE OF THE [place] IN LAST 30 DAYS: No - Related Data Allergies/Adverse Reactions: No Known Allergies Allergy (Verified 07/24/19 13:49) Past Medical History - General Information source: Patient - Social History Smoking Status: Current Some Day Smoker - Vapes. Chew tobacco use (# tins/day): No Frequency of alcohol use: None Drug Abuse: None Family History: Reviewed & Not Pertinent Patient has homicidal ideation: No - Past Medical History Cardiac Medical History: Reports: Hx Hypertension - during only Neurological Medical History: Reports: Hx Seizures - last at 17yo Renal/ Medical History: Denies: Hx Peritoneal Dialysis Past Surgical History: Reports: Hx Appendectomy - Immunizations Immunizations up to date: Yes Hx Diphtheria, Pertussis, Tetanus Vaccination: Yes Review of Systems - Review of Systems Constitutional: No symptoms reported EENT: See HPI, Nose congestion, Nose discharge Cardiovascular: See HPI - Chest tightness with coughing. Respiratory: See HPI, Cough. denies: Hurts to breathe, Short of breath Gastrointestinal: No symptoms reported -: Yes All other systems reviewed and negative Physical Exam - Vital signs Vitals: Temp Pulse Resp BP Pulse Ox 98.5 F 79 16 115/71 100 04/30/20 20:37 04/30/20 20:37 04/30/20 20:37 04/30/20 20:37 04/30/20 20:37 Interpretation: Normal - Notes Notes: GENERAL: Alert, interacts well. No acute distress. HEAD: Normocephalic, atraumatic EYES: Pupils equal, round and reactive to light, extraocular movements intact. ENT: Oral mucosa moist, tongue midline. Right naris edematous and swollen shut, clear discharge, no purulence, no foreign body, left naris with clear discharge but no turbinate edema. Cobblestoning in the posterior oropharynx. Tympanic membranes intact without injection, fluid or infection. NECK: Full range of motion, supple, trachea midline. LUNGS: Clear to auscultation bilaterally, no wheezes, rales or rhonchi, no respiratory distress. HEART: Regular rate and rhythm, no murmurs, gallops, rubs. ABDOMEN: Soft, nontender, nondistended, bowel sounds present in all 4 quadrants. EXTREMITIES: Moves all 4 extremities spontaneously, no edema, radial and dorsalis pedis pulses 2/4 bilaterally. No cyanosis. NEUROLOGICAL: Alert and oriented x3, normal speech. PSYCH: Normal mood, normal affect. SKIN: Warm, Dry, normal turgor, no rashes or lesions noted. Course - Re-evaluation Re-evalutation: 05/01/20 00:29 Chest x-ray is negative, flu swabs are negative. COVID swab is pending and will be resulted in 2 to 3 days. Patient's symptoms and physical examination are consistent with viral upper respiratory tract infection with cough. Patient will be treated with nasal steroids, decongestants and other things for symptomatic relief. Discharged home. - Vital Signs Vital signs: Temp Pulse Resp BP Pulse Ox 98.5 F 79 16 115/71 100 04/30/20 20:37 04/30/20 20:37 04/30/20 20:37 04/30/20 20:37 04/30/20 20:37 Discharge - Discharge Clinical Impression: Viral upper respiratory tract infection with cough Condition: Stable Disposition: HOME, SELF-CARE Additional Instructions: Today your chest x-ray did not show any signs of pneumonia. Your flu swabs were negative. I suspect your cough is coming from a viral infection. Your oxygen level is not so low that you need to be admitted. I simply walking across the room makes you feel like you are going to pass out or like you just walked up 2 flights of steps please return to the emergency department. Please let any healthcare personnel that you see know that you have been tested for coronavirus. This includes if you need to return to the emergency department. Please use nasal saline rinses such as a NetiPot or NeilMed Sinus Rinses. Please use nasal steroid such as Nasonex 1 squirt per nostril twice a day to decrease inflammation and swelling. Please also use vaso-[id number]-qfrklda decongestants according to their directions on the box such as Sudafed during the day and Benadryl at night. You may also use Afrin 1 squirt per nostril every 6 hours as needed for the next 3 days. Do not use it for longer than 3 days. You were tested for coronavirus (COVID 19) but these results may take 4 days or more to come back. Please stay in your house until they are resulted back negative or until you have been completely symptom-free for at least 3 days. Referrals: KLAUDIA HINTON PA-C [Primary Care Provider] - Follow up as needed
--- NOTE | 2020-04-30 22:31 | RADIOLOGY REPORT (SQ) ---
EXAM DESCRIPTION: [facility]: XR CHEST 1 VIEW CLINICAL HISTORY: 20 years Female; cough, chest tightness; COMPARISON: 01/11/2019 FINDINGS: Lungs: Lungs are clear, with no focal infiltrate, pneumothorax, or pleural effusion. Mediastinum: Mediastinum is within normal limits for this positioning. Bones: Bony structures are unremarkable. IMPRESSION: 1. No acute pulmonary findings.
[2020-05-01 00:08] LABS: A TYPE INFLUENZA AG NEGATIVE (NEGATIVE); B INFLUENZA AG NEGATIVE (NEGATIVE)
[2020-05-01 02:02] VITALS: BP 113/62
== END 2020-05-01 01:57 | disposition home or self-care (01) ==
LOC: ER 17:37
DX: J06.9 Acute upper respiratory infection, unspecified (principal); B97.89 Other viral agents as the cause of diseases classified elsewhere; R09.81 Nasal congestion; R05 Cough; R51 Headache; R07.89 Other chest pain; Z20.828 Contact with and (suspected) exposure to other viral communicable diseases; F17.290 Nicotine dependence, other tobacco product, uncomplicated
CPT/HCPCS: 99284; 87635; 87804; 71045; C9803

== ENCOUNTER 2020-06-16 00:24 | Emergency (ER) | payer SELFPAY ==
[2020-06-16 01:01] VITALS: BP 116/71
== END 2020-06-16 02:55 | disposition left against medical advice (07) ==
LOC: ER 00:24
DX: Z53.21 Procedure and treatment not carried out due to patient leaving prior to being seen by health care provider (principal)